=== PATIENT | male | born 1960 | race Caucasian/White ===

== ENCOUNTER 2020-05-04 02:49 | Inpatient (IN) | payer OTHER ==
[2020-05-04] MEDS ORDERED: ACETAMINOPHEN 1000 MG/100 ML VIAL (NON FORMULARY) IVPB ONE (03:30)
[2020-05-04] MEDS ORDERED: ACETAMINOPHEN INJECTION 100 ML IVPB ONE (04:01)
[2020-05-04 04:11] LABS: HEMATOCRIT 43.5 % (35.4-49); HEMOGLOBIN 14.2 GM/dL (11.7-16.9); MCH 30.7 pg (25.7-33.7); MCHC 32.7 g/dl (32.0-35.9); MEAN CELL VOLUME 94.1 fl (80-96); MEAN PLT VOLUME 7.8 fl (7.5-11.1); PLATELET COUNT 214 K/MM3 (134-434); RBC 4.62 M/mm3 (4.00-5.60); RDW 13.9 % (11.9-15.9); WHITE BLOOD COUNT 28.6 K/mm3 (4.0-10.0)
[2020-05-04 04:12] LABS: EPI CELLS 10 /uL (0-25.1); HYALINE CASTS 2 /uL (0-3.1); PH,URINE 5.5 (5.0-8.0); URINE APPEARANCE CLEAR; URINE BACTERIA 132 /uL (0-1359); URINE BILIRUBIN NEGATIVE (NEGATIVE); URINE COLOR YELLOW; URINE GLUCOSE (UA) NEGATIVE (NEGATIVE); URINE KETONE 3+ (NEGATIVE); URINE LEUK ESTERASE 1+ (NEGATIVE); URINE NITRITE NEGATIVE (NEGATIVE); URINE PROTEIN 1+ (NEGATIVE); URINE RBC 10 /uL (0-23.9); URINE WBC 49 /uL (0-25.8)
[2020-05-04 04:16] LABS: INR 1.46 (0.83-1.09); PROTHROMBIN TIME (PATIENT) 17.8 SEC (9.7-13.0)
[2020-05-04 04:19] LABS: ACTIVATED PTT 31.1 SECONDS (25.2-36.5)
[2020-05-04 04:25] LABS: ALBUMIN 3.4 g/dl (3.4-5.0); BLOOD UREA NITROGEN 13.6 mg/dL (7-18); CALCIUM 8.9 mg/dL (8.5-10.1)
[2020-05-04 04:28] LABS: CREATININE 0.8 mg/dL (0.55-1.3)
[2020-05-04 04:30] LABS: BILIRUBIN,TOTAL 1.2 mg/dL (0.2-1); TOT PROT 7.5 g/dl (6.4-8.2)
[2020-05-04 04:54] LABS: POTASSIUM 3.6 mmol/L (3.5-5.1)
[2020-05-04] MEDS ORDERED: PIPERACILLIN/TAZOB 3.375 GM 3.375 GM in DEXTROSE 5%-WATER - 50 ML IVPB ONE (05:58)
[2020-05-04] MEDS ORDERED: VANCOMYCIN 1 GM in D5W (PRE-DOCKED) 1,000 MG/250 ML IVPB ONE (05:58)
[2020-05-04] MEDS ORDERED: SODIUM CHLORIDE 0.9% 500 ML INFUS.BAG IV ONE (06:04)
[2020-05-04] MEDS ORDERED: LACTATED RINGERS SOLUTION 1000 ML INFUS.BAG IV STA (06:10)
[2020-05-04] MEDS ORDERED: PIPERACILLIN/TAZOB 3.375 GM 3.375 GM/50 ML BAG IVPB ONE (06:13)
[2020-05-04] MEDS ORDERED: VANCOMYCIN 1 GRAM (PRE-DOCKED) 1,000 MG/250 ML BAG IVPB ONE (07:18)
[2020-05-04] MEDS: oxyCODONE HCL 5 MG TABLET PO PRN ×2 (11:42→18:08)
[2020-05-04] MEDS ORDERED: DEXTROSE 5%-WATER - 50 ML IVPB ONE ×2 (12:53→16:57)
[2020-05-04] MEDS ORDERED: PIPERACILLIN/TAZOBACTAM 3.375 GM VIAL IVPB ONE ×2 (12:53→16:57)
[2020-05-04] MEDS: PIPERACILLIN/TAZOB 3.375 GM 3.375 GM in DEXTROSE 5%-WATER - 50 ML IVPB SCH ×2 (14:23→18:08)
[2020-05-04] MEDS: ACETAMINOPHEN 325 MG TABLET (FP) PO PRN (21:03)
[2020-05-04] MEDS: APIXABAN 5 MG TABLET PO SCH (21:03)
[2020-05-05] MEDS ORDERED: PIPERACILLIN/TAZOBACTAM 3.375 GM VIAL IVPB ONE ×3 (01:07→16:55)
[2020-05-05] MEDS ORDERED: DEXTROSE 5%-WATER - 50 ML IVPB ONE ×3 (01:07→16:55)
[2020-05-05] MEDS: PIPERACILLIN/TAZOB 3.375 GM 3.375 GM in DEXTROSE 5%-WATER - 50 ML IVPB SCH ×3 (01:33→18:47)
[2020-05-05] MEDS: oxyCODONE HCL 5 MG TABLET PO PRN ×3 (04:01→18:56)
[2020-05-05 07:47] LABS: BASO % 0.6 % (0-2.0); EOS % 0.7 % (0-4.5); HEMATOCRIT 40.1 % (35.4-49); LYMPH % 8.3 % (8-40); MCH 30.4 pg (25.7-33.7); MCHC 32.3 g/dl (32.0-35.9); MEAN PLT VOLUME 7.5 fl (7.5-11.1); MONO % 8.1 % (3.8-10.2); NEUT % 82.3 % (42.8-82.8); PLATELET COUNT 199 K/MM3 (134-434); RBC 4.27 M/mm3 (4.00-5.60)
[2020-05-05 07:53] LABS: POTASSIUM 3.4 mmol/L (3.5-5.1)
[2020-05-05 07:57] LABS: ALBUMIN 2.8 g/dl (3.4-5.0); BLOOD UREA NITROGEN 10.1 mg/dL (7-18); CALCIUM 8.2 mg/dL (8.5-10.1)
[2020-05-05 08:00] LABS: CREATININE 0.7 mg/dL (0.55-1.3)
[2020-05-05 08:02] LABS: BILIRUBIN,TOTAL 0.8 mg/dL (0.2-1); TOT PROT 6.6 g/dl (6.4-8.2)
[2020-05-05] MEDS: LISINOPRIL 5 MG TABLET PO SCH (10:11)
[2020-05-05] MEDS: APIXABAN 5 MG TABLET PO SCH ×2 (10:11→21:56)
[2020-05-05] MEDS: ACETAMINOPHEN 325 MG TABLET (FP) PO PRN ×2 (10:14→18:55)
[2020-05-06] MEDS ORDERED: PIPERACILLIN/TAZOBACTAM 3.375 GM VIAL IVPB ONE ×3 (01:27→17:49)
[2020-05-06] MEDS ORDERED: DEXTROSE 5%-WATER - 50 ML IVPB ONE ×3 (01:27→17:49)
[2020-05-06] MEDS: PIPERACILLIN/TAZOB 3.375 GM 3.375 GM in DEXTROSE 5%-WATER - 50 ML IVPB SCH ×3 (01:35→17:55)
[2020-05-06] MEDS: oxyCODONE HCL 5 MG TABLET PO PRN ×3 (04:10→21:15)
[2020-05-06] MEDS: LISINOPRIL 5 MG TABLET PO SCH (09:16)
[2020-05-06] MEDS: ACETAMINOPHEN 325 MG TABLET (FP) PO PRN ×2 (09:17→17:52)
[2020-05-06] MEDS: APIXABAN 5 MG TABLET PO SCH ×2 (09:17→21:16)
[2020-05-07] MEDS ORDERED: PIPERACILLIN/TAZOBACTAM 3.375 GM VIAL IVPB ONE ×3 (01:44→17:28)
[2020-05-07] MEDS ORDERED: DEXTROSE 5%-WATER - 50 ML IVPB ONE ×3 (01:44→17:29)
[2020-05-07] MEDS: PIPERACILLIN/TAZOB 3.375 GM 3.375 GM in DEXTROSE 5%-WATER - 50 ML IVPB SCH ×3 (01:54→18:09)
[2020-05-07] MEDS: oxyCODONE HCL 5 MG TABLET PO PRN ×3 (02:00→17:52)
[2020-05-07] MEDS: ACETAMINOPHEN 325 MG TABLET (FP) PO PRN ×3 (02:01→17:52)
[2020-05-07 07:32] LABS: BASO % 0.7 % (0-2.0); EOS % 1.1 % (0-4.5); HEMATOCRIT 43.3 % (35.4-49); HEMOGLOBIN 14.3 GM/dL (11.7-16.9); LYMPH % 14.9 % (8-40); MEAN CELL VOLUME 93.9 fl (80-96); MEAN PLT VOLUME 7.4 fl (7.5-11.1); MONO % 12.9 % (3.8-10.2); NEUT % 70.4 % (42.8-82.8); PLATELET COUNT 257 K/MM3 (134-434); RBC 4.61 M/mm3 (4.00-5.60); RDW 14.1 % (11.9-15.9); WHITE BLOOD COUNT 14.3 K/mm3 (4.0-10.0)
[2020-05-07 07:50] LABS: POTASSIUM 3.5 mmol/L (3.5-5.1)
[2020-05-07 07:52] LABS: ALBUMIN 2.7 g/dl (3.4-5.0); BLOOD UREA NITROGEN 11.4 mg/dL (7-18); CALCIUM 8.4 mg/dL (8.5-10.1)
[2020-05-07 07:55] LABS: CREATININE 0.8 mg/dL (0.55-1.3)
[2020-05-07 07:57] LABS: BILIRUBIN,TOTAL 0.5 mg/dL (0.2-1); TOT PROT 7.1 g/dl (6.4-8.2)
[2020-05-07] MEDS: LISINOPRIL 5 MG TABLET PO SCH (09:23)
[2020-05-07] MEDS: APIXABAN 5 MG TABLET PO SCH ×2 (09:23→20:59)
[2020-05-07] MEDS ORDERED: metoPROLOL SUCCINATE 25 MG TAB.SR.24H (FP) PO ONE (11:52)
[2020-05-07] MEDS: FUROSEMIDE 40 MG TABLET (FP) PO SCH (12:36)
[2020-05-08] MEDS ORDERED: PIPERACILLIN/TAZOBACTAM 3.375 GM VIAL IVPB ONE ×3 (00:33→17:02)
[2020-05-08] MEDS ORDERED: DEXTROSE 5%-WATER - 50 ML IVPB ONE ×3 (00:33→17:02)
[2020-05-08] MEDS: oxyCODONE HCL 5 MG TABLET PO PRN ×4 (00:35→19:04)
[2020-05-08] MEDS: ACETAMINOPHEN 325 MG TABLET (FP) PO PRN ×2 (00:37→06:53)
[2020-05-08] MEDS: PIPERACILLIN/TAZOB 3.375 GM 3.375 GM in DEXTROSE 5%-WATER - 50 ML IVPB SCH ×3 (01:06→17:17)
[2020-05-08] MEDS: FUROSEMIDE 40 MG TABLET (FP) PO SCH (09:26)
[2020-05-08] MEDS: APIXABAN 5 MG TABLET PO SCH ×2 (09:27→21:52)
[2020-05-08] MEDS: LISINOPRIL 5 MG TABLET PO SCH (09:27)
[2020-05-08 14:27] VITALS: BMI 41.8
[2020-05-08] MEDS ORDERED: oxyCODONE HCL 5 MG TABLET PO PRN (17:25)
[2020-05-09] MEDS ORDERED: DEXTROSE 5%-WATER - 50 ML IVPB ONE ×4 (01:10→23:59)
[2020-05-09] MEDS ORDERED: PIPERACILLIN/TAZOBACTAM 3.375 GM VIAL IVPB ONE ×4 (01:10→23:58)
[2020-05-09] MEDS: oxyCODONE HCL 5 MG TABLET PO PRN ×3 (01:17→15:11)
[2020-05-09] MEDS: PIPERACILLIN/TAZOB 3.375 GM 3.375 GM in DEXTROSE 5%-WATER - 50 ML IVPB SCH ×3 (01:17→17:50)
[2020-05-09 07:48] LABS: BASO % 0.7 % (0-2.0); EOS % 2.9 % (0-4.5); HEMATOCRIT 38.5 % (35.4-49); HEMOGLOBIN 12.7 GM/dL (11.7-16.9); MCH 30.9 pg (25.7-33.7); MCHC 32.9 g/dl (32.0-35.9); MEAN CELL VOLUME 93.9 fl (80-96); MEAN PLT VOLUME 7.5 fl (7.5-11.1); MONO % 11.9 % (3.8-10.2); NEUT % 70.5 % (42.8-82.8); PLATELET COUNT 279 K/MM3 (134-434); RBC 4.11 M/mm3 (4.00-5.60); RDW 14.3 % (11.9-15.9); WHITE BLOOD COUNT 11.7 K/mm3 (4.0-10.0)
[2020-05-09 07:55] LABS: CALCIUM 8.3 mg/dL (8.5-10.1)
[2020-05-09 07:56] LABS: ALBUMIN 2.4 g/dl (3.4-5.0); BLOOD UREA NITROGEN 11.4 mg/dL (7-18)
[2020-05-09 07:59] LABS: CREATININE 0.7 mg/dL (0.55-1.3)
[2020-05-09 08:00] LABS: BILIRUBIN,TOTAL 0.5 mg/dL (0.2-1); TOT PROT 6.3 g/dl (6.4-8.2)
[2020-05-09] MEDS: APIXABAN 5 MG TABLET PO SCH ×2 (09:07→21:30)
[2020-05-09] MEDS: LISINOPRIL 5 MG TABLET PO SCH (09:08)
[2020-05-09] MEDS: FUROSEMIDE 40 MG TABLET (FP) PO SCH (09:08)
[2020-05-09] MEDS ORDERED: TAMSULOSIN HCL 0.4 MG CAP PO ONE (17:10)
[2020-05-09] MEDS: ACETAMINOPHEN 325 MG TABLET (FP) PO PRN (20:03)
[2020-05-09] MEDS ORDERED: oxyCODONE HCL 5 MG TABLET PO ONE (20:24)
[2020-05-09] MEDS ORDERED: MELATONIN 5 MG TABLETS PO ONE (22:21)
[2020-05-10] MEDS: oxyCODONE HCL 5 MG TABLET PO PRN ×4 (00:06→22:49)
[2020-05-10] MEDS: PIPERACILLIN/TAZOB 3.375 GM 3.375 GM in DEXTROSE 5%-WATER - 50 ML IVPB SCH ×3 (01:40→17:40)
[2020-05-10] MEDS ORDERED: DEXTROSE 5%-WATER - 50 ML IVPB ONE ×2 (08:47→17:35)
[2020-05-10] MEDS ORDERED: PIPERACILLIN/TAZOBACTAM 3.375 GM VIAL IVPB ONE ×2 (08:47→17:35)
[2020-05-10] MEDS: ACETAMINOPHEN 325 MG TABLET (FP) PO PRN ×2 (08:55→16:34)
[2020-05-10] MEDS: FUROSEMIDE 40 MG TABLET (FP) PO SCH (08:59)
[2020-05-10] MEDS: LISINOPRIL 5 MG TABLET PO SCH (08:59)
[2020-05-10] MEDS: APIXABAN 5 MG TABLET PO SCH ×2 (08:59→22:23)
[2020-05-11] MEDS ORDERED: DEXTROSE 5%-WATER - 50 ML IVPB ONE ×3 (01:10→17:11)
[2020-05-11] MEDS ORDERED: PIPERACILLIN/TAZOBACTAM 3.375 GM VIAL IVPB ONE ×3 (01:10→17:11)
[2020-05-11] MEDS: PIPERACILLIN/TAZOB 3.375 GM 3.375 GM in DEXTROSE 5%-WATER - 50 ML IVPB SCH ×3 (01:21→17:14)
[2020-05-11 07:01] LABS: BASO % 0.9 % (0-2.0); EOS % 4.2 % (0-4.5); HEMATOCRIT 37.7 % (35.4-49); HEMOGLOBIN 12.3 GM/dL (11.7-16.9); LYMPH % 17.1 % (8-40); MCH 30.8 pg (25.7-33.7); MCHC 32.8 g/dl (32.0-35.9); MEAN CELL VOLUME 94.1 fl (80-96); MEAN PLT VOLUME 7.5 fl (7.5-11.1); MONO % 10.2 % (3.8-10.2); NEUT % 67.6 % (42.8-82.8); PLATELET COUNT 383 K/MM3 (134-434); RDW 14.2 % (11.9-15.9); WHITE BLOOD COUNT 12.6 K/mm3 (4.0-10.0)
[2020-05-11 07:18] LABS: POTASSIUM 4.4 mmol/L (3.5-5.1)
[2020-05-11 07:19] LABS: CALCIUM 8.5 mg/dL (8.5-10.1)
[2020-05-11 07:20] LABS: ALBUMIN 2.5 g/dl (3.4-5.0); BLOOD UREA NITROGEN 14.1 mg/dL (7-18)
[2020-05-11 07:23] LABS: CREATININE 0.8 mg/dL (0.55-1.3)
[2020-05-11 07:25] LABS: BILIRUBIN,TOTAL 0.4 mg/dL (0.2-1); TOT PROT 6.8 g/dl (6.4-8.2)
[2020-05-11] MEDS: APIXABAN 5 MG TABLET PO SCH (09:10)
[2020-05-11] MEDS: FUROSEMIDE 40 MG TABLET (FP) PO SCH (09:10)
[2020-05-11] MEDS: LISINOPRIL 5 MG TABLET PO SCH (09:10)
[2020-05-11] MEDS ORDERED: PT OWN MED DRAWER 7, Y5N ONE (10:23)
[2020-05-11] MEDS: oxyCODONE HCL 5 MG TABLET PO PRN (10:27)
[2020-05-11] MEDS: ACETAMINOPHEN 325 MG TABLET (FP) PO PRN (10:28)
[2020-05-11] MEDS ORDERED: oxyCODONE HCL 5 MG TABLET PO PRN (15:28)
[2020-05-11] MEDS ORDERED: ONDANSETRON 4 MG/2 ML VIAL IVPUSH PRN ×2 (20:55→23:24)
[2020-05-11] MEDS ORDERED: PROMETHAZINE HCL 25 MG/1 ML VIAL IVPUSH PRN ×2 (20:55→23:24)
[2020-05-11] MEDS ORDERED: LACTATED RINGERS SOLUTION 1,000 ML IV SCH (21:00)
[2020-05-11] MEDS ORDERED: PROPOFOL 20 ML ONE (21:16)
[2020-05-11] MEDS ORDERED: LIDOCAINE HCL/PF 2% SDV 5ML VIAL ONE (21:17)
[2020-05-11] MEDS ORDERED: SODIUM CHLORIDE 0.9% P/F 10 ML VIAL IJ ONE (21:17)
[2020-05-11] MEDS ORDERED: ceFAZolin SODIUM 1 GM VIAL ONE (21:17)
[2020-05-11] MEDS ORDERED: ceFAZolin 2 GRAM PREMIX BAG IVPB ONE (21:25)
[2020-05-11] MEDS ORDERED: SUCCINYLCHOLINE CHLORIDE 200 MG/10 ML SYRINGE ONE (21:29)
[2020-05-11] MEDS ORDERED: ROCURONIUM BROMIDE 50 MG/5 ML SYRINGE ONE (21:30)
[2020-05-11] MEDS ORDERED: BUPIVACAINE HCL/PF 0.25% (2.5MG/ML) 10 ML VIAL ONE (21:39)
[2020-05-11] MEDS ORDERED: GENTAMICIN SO4 80 MG/2 ML VIAL ONE ×2 (21:51→21:52)
[2020-05-11] MEDS ORDERED: DEXAMETHASONE SOD PHOSPHATE 4 MG/1 ML VIAL ONE (21:52)
[2020-05-11] MEDS ORDERED: ONDANSETRON 4 MG/2 ML VIAL ONE (21:52)
[2020-05-11] MEDS ORDERED: GENTAMICIN SO4 80 MG/2 ML VIAL IVPB ONE (21:53)
[2020-05-11] MEDS ORDERED: KETOROLAC TROMETHAMINE 30 MG/1 ML VIAL ONE (22:03)
[2020-05-11] MEDS ORDERED: GLYCOPYRROLATE 0.2 MG/1 ML VIAL ONE (22:06)
[2020-05-11] MEDS ORDERED: NEOSTIGMINE METHYLSULFATE 0.5 MG/1 ML - 10 ML MDV ONE (22:06)
[2020-05-11] MEDS: LACTATED RINGERS SOLUTION 1,000 ML IV SCH (23:30)
[2020-05-12] MEDS: oxyCODONE HCL 5 MG TABLET PO PRN ×3 (00:28→23:06)
[2020-05-12] MEDS ORDERED: PIPERACILLIN/TAZOB 3.375 GM 3.375 GM in DEXTROSE 5%-WATER - 50 ML IVPB SCH (02:00)
[2020-05-12] MEDS ORDERED: DEXTROSE 5%-WATER - 50 ML IVPB ONE ×3 (02:08→18:07)
[2020-05-12] MEDS ORDERED: PIPERACILLIN/TAZOBACTAM 3.375 GM VIAL IVPB ONE ×3 (02:08→18:07)
[2020-05-12] MEDS: ACETAMINOPHEN 325 MG TABLET (FP) PO PRN ×3 (02:13→20:43)
[2020-05-12] MEDS: PIPERACILLIN/TAZOB 3.375 GM 3.375 GM in DEXTROSE 5%-WATER - 50 ML IVPB SCH ×3 (02:17→18:34)
[2020-05-12] MEDS: APIXABAN 5 MG TABLET PO SCH (02:20)
[2020-05-12 07:52] LABS: BASO % 0.3 % (0-2.0); EOS % 0.1 % (0-4.5); HEMATOCRIT 37.8 % (35.4-49); HEMOGLOBIN 12.5 GM/dL (11.7-16.9); LYMPH % 6.5 % (8-40); MCH 31.3 pg (25.7-33.7); MCHC 33.2 g/dl (32.0-35.9); MEAN CELL VOLUME 94.3 fl (80-96); MEAN PLT VOLUME 7.4 fl (7.5-11.1); MONO % 3.8 % (3.8-10.2); NEUT % 89.3 % (42.8-82.8); PLATELET COUNT 422 K/MM3 (134-434); RBC 4.01 M/mm3 (4.00-5.60); RDW 13.9 % (11.9-15.9); WHITE BLOOD COUNT 17.9 K/mm3 (4.0-10.0)
[2020-05-12 08:08] LABS: POTASSIUM 5.3 mmol/L (3.5-5.1)
[2020-05-12 08:23] LABS: ALBUMIN 2.6 g/dl (3.4-5.0); BLOOD UREA NITROGEN 19.5 mg/dL (7-18); CALCIUM 8.7 mg/dL (8.5-10.1)
[2020-05-12 08:26] LABS: CREATININE 0.9 mg/dL (0.55-1.3)
[2020-05-12 08:27] LABS: BILIRUBIN,TOTAL 0.4 mg/dL (0.2-1)
[2020-05-12] MEDS: FUROSEMIDE 40 MG TABLET (FP) PO SCH (09:40)
[2020-05-12] MEDS: LISINOPRIL 5 MG TABLET PO SCH (09:41)
[2020-05-12] MEDS: LACTATED RINGERS SOLUTION 1,000 ML IV SCH (09:43)
[2020-05-12] MEDS ORDERED: APIXABAN 5 MG TABLET PO SCH (10:00)
[2020-05-13] MEDS ORDERED: PIPERACILLIN/TAZOBACTAM 3.375 GM VIAL IVPB ONE ×3 (01:16→16:43)
[2020-05-13] MEDS ORDERED: DEXTROSE 5%-WATER - 50 ML IVPB ONE ×3 (01:16→16:43)
[2020-05-13] MEDS: PIPERACILLIN/TAZOB 3.375 GM 3.375 GM in DEXTROSE 5%-WATER - 50 ML IVPB SCH ×3 (01:54→17:21)
[2020-05-13] MEDS: ACETAMINOPHEN 325 MG TABLET (FP) PO PRN (04:37)
[2020-05-13] MEDS: oxyCODONE HCL 5 MG TABLET PO PRN ×2 (06:22→17:39)
[2020-05-13] MEDS ORDERED: PT OWN MED DRAWER 7, Y5N ONE (09:46)
[2020-05-13] MEDS: LISINOPRIL 5 MG TABLET PO SCH (10:16)
[2020-05-13] MEDS: FUROSEMIDE 40 MG TABLET (FP) PO SCH (10:16)
[2020-05-13 13:47] LABS: HEMATOCRIT 36.8 % (35.4-49); HEMOGLOBIN 12.2 GM/dL (11.7-16.9); MCHC 33.1 g/dl (32.0-35.9); MEAN CELL VOLUME 93.7 fl (80-96); MEAN PLT VOLUME 7.4 fl (7.5-11.1); PLATELET COUNT 447 K/MM3 (134-434); RBC 3.92 M/mm3 (4.00-5.60); WHITE BLOOD COUNT 9.2 K/mm3 (4.0-10.0)
[2020-05-13 14:06] LABS: POTASSIUM 4.5 mmol/L (3.5-5.1)
[2020-05-13 14:08] LABS: CALCIUM 8.8 mg/dL (8.5-10.1)
[2020-05-13 14:09] LABS: ALBUMIN 2.6 g/dl (3.4-5.0); BLOOD UREA NITROGEN 17.3 mg/dL (7-18)
[2020-05-13 14:13] LABS: BILIRUBIN,TOTAL 0.2 mg/dL (0.2-1)
[2020-05-13 14:14] LABS: TOT PROT 6.7 g/dl (6.4-8.2)
[2020-05-14] MEDS ORDERED: PIPERACILLIN/TAZOBACTAM 3.375 GM VIAL IVPB ONE ×3 (01:18→16:55)
[2020-05-14] MEDS ORDERED: DEXTROSE 5%-WATER - 50 ML IVPB ONE ×3 (01:18→16:56)
[2020-05-14] MEDS: PIPERACILLIN/TAZOB 3.375 GM 3.375 GM in DEXTROSE 5%-WATER - 50 ML IVPB SCH ×3 (01:25→17:44)
[2020-05-14] MEDS: oxyCODONE HCL 5 MG TABLET PO PRN ×3 (02:49→22:32)
[2020-05-14 07:02] LABS: BASO % 1.1 % (0-2.0); EOS % 4.1 % (0-4.5); HEMATOCRIT 38.4 % (35.4-49); LYMPH % 25.2 % (8-40); MCH 31.7 pg (25.7-33.7); MCHC 33.8 g/dl (32.0-35.9); MEAN CELL VOLUME 93.9 fl (80-96); MEAN PLT VOLUME 7.1 fl (7.5-11.1); MONO % 9.8 % (3.8-10.2); NEUT % 59.8 % (42.8-82.8); PLATELET COUNT 470 K/MM3 (134-434); RBC 4.09 M/mm3 (4.00-5.60); RDW 14.4 % (11.9-15.9); WHITE BLOOD COUNT 10.1 K/mm3 (4.0-10.0)
[2020-05-14] MEDS: LISINOPRIL 5 MG TABLET PO SCH (09:22)
[2020-05-14] MEDS: FUROSEMIDE 40 MG TABLET (FP) PO SCH (09:23)
[2020-05-14] MEDS: APIXABAN 5 MG TABLET PO SCH ×2 (09:23→22:33)
[2020-05-14] MEDS: ACETAMINOPHEN 325 MG TABLET (FP) PO PRN (13:45)
[2020-05-15] MEDS ORDERED: DEXTROSE 5%-WATER - 50 ML IVPB ONE ×2 (02:30→09:21)
[2020-05-15] MEDS ORDERED: PIPERACILLIN/TAZOBACTAM 3.375 GM VIAL IVPB ONE ×2 (02:30→09:21)
[2020-05-15] MEDS: PIPERACILLIN/TAZOB 3.375 GM 3.375 GM in DEXTROSE 5%-WATER - 50 ML IVPB SCH ×2 (02:35→10:08)
[2020-05-15] MEDS: ACETAMINOPHEN 325 MG TABLET (FP) PO PRN (07:56)
[2020-05-15] MEDS: LISINOPRIL 5 MG TABLET PO SCH (10:07)
[2020-05-15] MEDS: APIXABAN 5 MG TABLET PO SCH (10:07)
[2020-05-15] MEDS: FUROSEMIDE 40 MG TABLET (FP) PO SCH (10:07)
[2020-05-15 15:04] VITALS: BP 118/63; PULSE 89; TEMP 97.6
== END 2020-05-15 18:17 | disposition home health service (06) | DRG 483 ==
LOC: JER 02:49 → JERBED 06:01 → J7W 10:15
PROVIDERS: ADMIT Internal Medicine; ATTEND Internal Medicine
PROC: 0VQB0ZZ Repair Left Testis, Open Approach (ICD-10-PCS; 2020-05-11)
PROC: 0VT90ZZ Resection of Right Testis, Open Approach (ICD-10-PCS; principal; 2020-05-11 21:33)
DX: N45.3 Epididymo-orchitis (principal); Z68.41 Body mass index [BMI] 40.0-44.9, adult; I48.91 Unspecified atrial fibrillation; E66.01 Morbid (severe) obesity due to excess calories; I25.10 Atherosclerotic heart disease of native coronary artery without angina pectoris; I50.30 Unspecified diastolic (congestive) heart failure; I11.0 Hypertensive heart disease with heart failure; N39.0 Urinary tract infection, site not specified; R00.0 Tachycardia, unspecified; I47.1 Supraventricular tachycardia; I48.0 Paroxysmal atrial fibrillation; N44.00 Torsion of testis, unspecified; I35.0 Nonrheumatic aortic (valve) stenosis
CPT/HCPCS: 36415; 72193-TC; 76775-TC; 76856-TC; 76870-TC; 80053; 81003; 82550; 82553; 83605; 85025; 85027; 85610; 85651; 85730; 86140; 86850; 86900; 86901; 87040; 87070; 87075; 87086; 87186; 87205; 88305-TC; 93005; 93010; 94760; 99285-25; C9803; J0131; U0003

== ENCOUNTER 2022-02-28 07:47 | Emergency (ER) | payer OTHER ==
[2022-02-28 07:59] VITALS: BP 168/96; PULSE 74; RESP 18; TEMP 98.4; BMI 40.3
[2022-02-28] MEDS ORDERED: METHOCARBAMOL 500 MG TABLET PO ONE (08:36)
[2022-02-28] MEDS ORDERED: ACETAMINOPHEN 325 MG TABLET (FP) PO ONE (08:36)
[2022-02-28] MEDS ORDERED: LIDOCAINE 5% TOPICAL PATCH TP ONE (08:36)
[2022-02-28] MEDS ORDERED: METHOCARBAMOL 500 MG TABLET ONE (08:47)
[2022-02-28] MEDS ORDERED: LIDOCAINE 5% TOPICAL PATCH ONE (08:47)
[2022-02-28] MEDS ORDERED: ACETAMINOPHEN 500 MG TABLET (FP) ONE (08:48)
[2022-02-28 09:35] LABS: EPI CELLS 11 /uL (0-25.1); HYALINE CASTS 0 /uL (0-3.1); PH,URINE 5.5 (5.0-8.0); URINE APPEARANCE CLEAR; URINE BACTERIA 70 /uL (0-1359); URINE BILIRUBIN NEGATIVE (NEGATIVE); URINE COLOR YELLOW; URINE GLUCOSE (UA) NEGATIVE (NEGATIVE); URINE KETONE 2+ (NEGATIVE); URINE LEUK ESTERASE NEGATIVE (NEGATIVE); URINE NITRITE NEGATIVE (NEGATIVE); URINE PROTEIN 1+ (NEGATIVE); URINE RBC 11 /uL (0-23.9); URINE WBC 22 /uL (0-25.8)
== END 2022-02-28 09:50 | disposition home or self-care (01) ==
LOC: JERFT 07:47
DX: M54.50 Low back pain, unspecified (principal)
CPT/HCPCS: 81003; 87077; 87086; 99283-25